=== PATIENT | male | born 1945 | race Caucasian/White ===

== ENCOUNTER → 2016-09-27 | Outpatient (CLI) | payer MEDICARE, OTHER ==
--- NOTE | 2016-09-27 17:12 | CR ---
EXAMINATION: Lumbar spine HISTORY: Low back pain COMPARISON: Radiographs dated 05/04/2016 TECHNIQUE: AP and lateral views FINDINGS: The lumbar spinal alignment appears grossly normal. The vertebral body heights appear main tained. Mild disc space narrowing is noted at L2-L3. Moderate marginal osteophytes are present. The SI joints are symmetric. Bone mineralization is normal. Vascular calcifications are present. IMPRESSION: Degenerative changes without acute findings.
== END | disposition home or self-care (01) ==
LOC: MW.CHFP 15:22
PROVIDERS: ATTEND Nurse Practitioner Family
DX: M54.5 Low back pain (principal); M47.896 Other spondylosis, lumbar region; M54.30 Sciatica, unspecified side
CPT/HCPCS: 72100; G0463

== ENCOUNTER → 2016-10-02 | Outpatient (CLI) | payer MEDICARE, OTHER | LOC: MW.CHRC 08:00 | CPT/HCPCS: G0463 ==

== ENCOUNTER → 2016-10-04 | Outpatient (CLI) | payer MEDICARE, OTHER | LOC: MW.CHORTHO 08:00 | DX: M17.11 Unilateral primary osteoarthritis, right knee (principal) | CPT/HCPCS: 20610; G0463; J1040 ==

== ENCOUNTER 2016-10-07 09:02 | Emergency (ER) | payer MEDICARE, OTHER ==
--- NOTE | 2016-10-07 09:40 | EDM.PDOC ---
ED HPI GENERAL MEDICAL PROBLEM - General Chief Complaint: Back Pain or Injury Stated Complaint: LEG PAIN Time Seen by Provider: 10/07/16 09:37 Source of Information: Reports: Patient - History of Present Illness INITIAL COMMENTS - FREE TEXT/NARRATIVE: HISTORY AND PHYSICAL: History of present illness: [ patient presents with low back pain radiating to the right knee in the sciatic distribution, he is been having difficulty sleeping for 2-3 weeks now he rates pain 7/10 today, no fever nausea vomiting chills sweats no chest pain shortness breath headache dizziness or palpitation no bowel or urine symptoms no footdrop or saddle anesthesia pain has been present off and on over the last 3-4 years more mild symptoms in the past Review of systems: As per history of present illness and below otherwise all systems reviewed and negative. Past medical history: As per history of present illness and as reviewed below otherwise noncontributory. Surgical history: As per history of present illness and as reviewed below otherwise noncontributory. Social history: No reported history of drug or alcohol abuse. Family history: As per history of present illness and as reviewed below otherwise noncontributory. Physical exam: HEENT: Atraumatic, normocephalic, pupils reactive, negative for conjunctival pallor or scleral icterus, mucous membranes moist, throat clear, neck supple, nontender, trachea midline. Lungs: Clear to auscultation, breath sounds equal bilaterally, chest nontender. Heart: S1S2, regular, negative for clicks, rubs, or JVD. Abdomen: Soft, nondistended, nontender. Negative for masses or hepatosplenomegaly. Negative for costovertebral tenderness. Pelvis: Stable nontender. Genitourinary: Deferred. Rectal: Deferred. Extremities: Atraumatic, negative for cords or calf pain. Neurovascular unremarkable. No footdrop or saddle anesthesia Neuro: Awake, alert, oriented. Cranial nerves II through XII unremarkable. Cerebellum unremarkable. Motor and sensory unremarkable throughout. Exam nonfocal. Diagnostics: [] Lumbar spine on electronic file Therapeutics: [] Patient her currently on Flexeril, hydrocodone, he is been on prednisone, and as failed tramadol We can add Lyrica 50 mg by mouth daily #14 no refill Followup with primary care, consideration of MRI and/or epidural steroid injection Impression: [] Right sciatic distribution pain Definitive disposition and diagnosis as appropriate pending reevaluation and review of above. Right Lower Back Pain Score (Numeric/FACES): 8 - Related Data Allergies Allergy/AdvReac Type Severity Reaction Status Date / Time No Known Allergies Allergy Verified 10/07/16 09:10 Home Meds: Home Meds Aspirin [Children's Aspirin] 81 mg PO DAILY 05/22/14 [History] Clopidogrel [Plavix] 75 mg PO DAILY 05/22/14 [History] Ezetimibe [Zetia] 10 mg PO DAILY 05/22/14 [History] Isosorbide Mononitrate [Imdur] 30 mg PO DAILY 05/22/14 [History] Metoprolol Succinate 50 mg PO BID 05/22/14 [History] Ramipril [Altace] 1 tab PO DAILY 05/22/14 [History] Ranolazine [Ranexa] 1 gm PO BID 05/22/14 [History] atorvaSTATin [Lipitor] 1 tab PO DAILY 05/22/14 [History] Cyclobenzaprine [Flexeril] 10 mg PO BEDTIME PRN 10/07/16 [History] Hydrocodone/Acetaminophen [Hydrocodon-Acetaminophen 5-325] 1 each PO BID PRN 11/20 [History] Past Medical History HEENT History: Reports: Impaired vision Cardiovascular History: Reports: CAD, High cholesterol, Hypertension, [place], Stents Other Cardiovascular History: [place] X 4. Stenting X 6. Bypass X 2 Respiratory History: Reports: None Gastrointestinal History: Reports: None Genitourinary History: Reports: None Musculoskeletal History: Reports: Other (see below) (chronic back pain) Neurological History: Reports: None Psychiatric History: Reports: None Endocrine/Metabolic History: Reports: None Dermatologic History: Reports: None - Infectious Disease History Infectious Disease History: Reports: None - Past Surgical History Cardiovascular Surgical History: Reports: Carotid stents, Coronary artery bypass Male Surgical History: Reports: None Musculoskeletal Surgical History: Reports: Other (see below) Other Musculoskeletal Surgeries/Procedures:: bilateral shoulder surgery Social & Family History - Family History Family Medical History: Unobtainable HEENT: Reports: None Cardiac: Reports: None Respiratory: Reports: None - Tobacco Use Smoking Status *Q: Never Smoker Second Hand Smoke Exposure: No - Caffeine Use Caffeine Use Comment: 1-2 cups a day - Alcohol Use Days Per Week of Alcohol Use: 0 Number of Drinks Per Day: 1 Total Drinks Per Week: 0 - Recreational Drug Use Recreational Drug Use: No - Living Situation & Occupation Living situation: Reports: ED ROS GENERAL - Review of Systems Review Of Systems: ROS reveals no pertinent complaints other than HPI. ED EXAM, GENERAL - Physical Exam Exam: See Below Course - Vital Signs Last Recorded V/S: Last Vital Signs Temp 35.9 C 10/07/16 09:13 Pulse 57 L 10/07/16 09:13 Resp 16 10/07/16 09:13 BP 131/58 L 10/07/16 09:13 Pulse Ox 94 L 10/07/16 09:13 Departure - Departure Time of Disposition: 09:39 Disposition: Home, Self-Care 01 Condition: good Clinical Impression: Sciatica Forms: ED Department Discharge Additional Instructions: Medication as prescribed Continue current medications Followup with primary care may consider MRI and/or epidural steroid injection The following information is given to patients seen in the emergency department who are being discharged to home. This information is to outline your options for follow-up care. We provide all patients seen in our emergency department with a follow-up referral. The need for follow-up, as well as the timing and circumstances, are variable depending upon the specifics of your emergency department visit. If you don't have a primary care physician on staff, we will provide you with a referral. We always advise you to contact your personal physician following an emergency department visit to inform them of the circumstance of the visit and for follow-up with them and/or the need for any referrals to a consulting specialist. The emergency department will also refer you to a specialist when appropriate. This referral assures that you have the opportunity for follow-up care with a specialist. All of these measure are taken in an effort to provide you with optimal care, which includes your follow-up. Under all circumstances we always encourage you to contact your private physician who remains a resource for coordinating your care. When calling for follow-up care, please make the office aware that this follow-up is from your recent emergency room visit. If for any reason you are refused follow-up, please contact the [facility] emergency department at and asked to speak to the emergency department charge nurse.
== END 2016-10-07 09:46 | disposition home or self-care (01) ==
LOC: MW.ED 09:02
CPT/HCPCS: 99283

== ENCOUNTER → 2016-10-10 | Outpatient (CLI) | payer MEDICARE, OTHER | LOC: MW.CHFP 08:00 | PROVIDERS: ATTEND Nurse Practitioner Family | DX: M54.5 Low back pain (principal) | CPT/HCPCS: G0463 ==

== ENCOUNTER → 2016-10-11 | Outpatient (CLI) | payer MEDICARE, OTHER ==
--- NOTE | 2016-10-11 15:54 | MR ---
EXAM DATE: 10/11/16 PATIENT'S AGE: 71 Patient: LENIN MAGALLANES Facility: [place], [place] Site . Site : 1945 Study: MRI Spine Lumbar [id number]/8/2017 8:57:01 AM Ordering Physician: Armand Muse Final Report: Indication: 71-year-old male. Severe low back pain with right leg radiation to the knee. Technique: T1-T2 and STIR sagittal images with multilevel T1 and T2 axial acquisitions. Findings: Lumbar alignment is normal. Conus is normal. T11-12 and T12-L1: Minor spondylosis/annular bulge. No significant central or foraminal narrowing. L1-2: Disc bulge, spurring and grade 1 retrolisthesis. No significant central or foraminal narrowing. L2-3: Large right central/foraminal disc extrusion markedly impinges right L3 and L2. Moderate central stenosis by extrusion. Mild left foraminal narrowing. Disc space narrowing, disc bulge, spurring and grade 1 retrolisthesis. L3-4: Disc bulge, spurring and grade 1 retrolisthesis. Mild right foraminal narrowing. Right far lateral disc osteophyte complex mildly impinges L3. L4-5: Advanced bilateral facet arthrosis. Grade 1 anterolisthesis. Disc bulge and spurring. Mild bilateral foraminal narrowing. Moderate right and mild left subarticular recess stenosis. L5-S1: Focal right central protrusion mildly impinges right S1. Foramina adequately patent. Marked bilateral facet arthrosis. Visualized portions of the sacrum are normal. Impression: 1. Large right central/foraminal disc extrusion at L2-3 markedly impinges right L2 and L3. Extrusion contributes to moderate central stenosis. 2. Right central disc protrusion at L5-S1 and mildly impinges right S1. 3. Right far lateral marginal disc osteophyte complex at L3-4 mildly impinges right L3. 4. Moderate right L4-5 subarticular recess stenosis. Correlation for possible right L5 symptoms is suggested. 5. Spondylosis of other segments detailed above without significant central or foraminal and Dictated by Nicko Ludwig MD @ Oct 11 2016 9:07AM (Electronic Signature) Report Signed by Proxy and Original Signed Document filed in the Medical Record. NANCYD
== END ==
LOC: MW.MRI 07:16
PROVIDERS: ATTEND Nurse Practitioner Family
DX: M25.78 Osteophyte, vertebrae (principal); M47.9 Spondylosis, unspecified; M54.5 Low back pain
CPT/HCPCS: 72148; 72148-26

== ENCOUNTER 2016-10-14 23:08 | Emergency (ER) | payer MEDICARE, OTHER ==
--- NOTE | 2016-10-14 23:20 | EDM.PDOC ---
ED HPI GENERAL MEDICAL PROBLEM - General Stated Complaint: LEG FILLING WITH FLUID Time Seen by Provider: 10/14/16 23:15 - History of Present Illness INITIAL COMMENTS - FREE TEXT/NARRATIVE: HISTORY AND PHYSICAL: History of present illness: Patient is a 71-year-old white male history of sciatica judgments are bilateral peripheral edema this is his Lorex remedies right slightly greater than left he thinks he's noticed this over the last week or 2 seems to have more discomfort or tightness in the right leg than left. No numbness no weakness no incontinence or retention bladder he denies history of kidney problems denies history of heart failure. Review of systems: As per history of present illness and below otherwise all systems reviewed and negative. Past medical history: As per history of present illness and as reviewed below otherwise noncontributory. Surgical history: As per history of present illness and as reviewed below otherwise noncontributory. Social history: No reported history of drug or alcohol abuse. Family history: As per history of present illness and as reviewed below otherwise noncontributory. Physical exam: HEENT: Atraumatic, normocephalic, pupils reactive, negative for conjunctival pallor or scleral icterus, mucous membranes moist, throat clear, neck supple, nontender, trachea midline. Lungs: Clear to auscultation, breath sounds equal bilaterally, chest nontender. Heart: S1S2, regular, negative for clicks, rubs, or JVD. Abdomen: Soft, nondistended, nontender. Negative for masses or hepatosplenomegaly. Negative for costovertebral tenderness. Pelvis: Stable nontender. Genitourinary: Deferred. Rectal: Deferred. Extremities: Atraumatic, negative for cords or calf pain. Neurovascular unremarkable. Patient is noted to have 1-2+ edema in his inferior extremities right slightly greater than left Neuro: Awake, alert, oriented. Cranial nerves II through XII unremarkable. Cerebellum unremarkable. Motor and sensory unremarkable throughout. Exam nonfocal. Diagnostics: CBC CMP BNP UA chest x-ray EKG venous Doppler inferior extremities Therapeutics: none Impression: #1 peripheral edema Definitive disposition and diagnosis as appropriate pending reevaluation and review of above. - Related Data Allergies Allergy/AdvReac Type Severity Reaction Status Date / Time No Known Allergies Allergy Verified 10/14/16 23:18 Home Meds: Home Meds Aspirin [Children's Aspirin] 81 mg PO DAILY 05/22/14 [History] Clopidogrel [Plavix] 75 mg PO DAILY 05/22/14 [History] Ezetimibe [Zetia] 10 mg PO DAILY 05/22/14 [History] Isosorbide Mononitrate [Imdur] 30 mg PO DAILY 05/22/14 [History] Metoprolol Succinate 50 mg PO BID 05/22/14 [History] Ramipril [Altace] 1 tab PO DAILY 05/22/14 [History] Ranolazine [Ranexa] 1 gm PO BID 05/22/14 [History] atorvaSTATin [Lipitor] 1 tab PO DAILY 05/22/14 [History] Cyclobenzaprine [Flexeril] 10 mg PO BEDTIME PRN 10/07/16 [History] Hydrocodone/Acetaminophen [Hydrocodon-Acetaminophen 5-325] 1 each PO BID PRN 11/20 [History] Pregabalin [Lyrica] 1 cap PO BID 10/14/16 [History] Past Medical History HEENT History: Reports: Impaired vision Cardiovascular History: Reports: CAD, High cholesterol, Hypertension, [place], Stents Other Cardiovascular History: [place] X 4. Stenting X 6. Bypass X 2 Respiratory History: Reports: None Gastrointestinal History: Reports: None Genitourinary History: Reports: None Musculoskeletal History: Reports: Other (see below) (chronic back pain) Neurological History: Reports: None Psychiatric History: Reports: None Endocrine/Metabolic History: Reports: None Dermatologic History: Reports: None - Infectious Disease History Infectious Disease History: Reports: None - Past Surgical History Cardiovascular Surgical History: Reports: Carotid stents, Coronary artery bypass Male Surgical History: Reports: None Musculoskeletal Surgical History: Reports: Other (see below) Other Musculoskeletal Surgeries/Procedures:: bilateral shoulder surgery Social & Family History - Family History Family Medical History: Unobtainable HEENT: Reports: None Cardiac: Reports: None Respiratory: Reports: None - Tobacco Use Smoking Status *Q: Never Smoker Second Hand Smoke Exposure: No - Caffeine Use Caffeine Use Comment: 1-2 cups a day - Alcohol Use Days Per Week of Alcohol Use: 0 Number of Drinks Per Day: 1 Total Drinks Per Week: 0 - Recreational Drug Use Recreational Drug Use: No - Living Situation & Occupation Living situation: Reports: ED ROS GENERAL - Review of Systems Review Of Systems: ROS reveals no pertinent complaints other than HPI. ED EXAM, GENERAL - Physical Exam Exam: See Below (See dictation) Course - Vital Signs Last Recorded V/S: Last Vital Signs Temp 36.4 C 10/14/16 23:14 Pulse 67 10/14/16 23:14 Resp 16 10/14/16 23:14 BP 165/71 H 10/14/16 23:14 Pulse Ox 96 10/14/16 23:14 - Orders/Labs/Meds Orders: Active Orders 24 hr Category Date Time Status EKG 12 Lead [EKG Documentation Completion] [RC] STAT Care 10/14/16 23:15 Active Chest 1V Frontal [CR] Stat Exams 10/14/16 23:16 Ordered Venous Doppler Lwr Ext Bi [US] Stat Exams 10/14/16 23:16 Ordered Labs: Laboratory Tests 10/14/16 10/14/16 10/14/16 Range/Units 23:20 23:20 23:20 WBC 7.93 (4.0-11.0) K/uL RBC 4.39 L (4.50-5.90) M/uL Hgb 14.0 (13.0-17.0) g/dL Hct 40.2 (38.0-50.0) % MCV 91.6 (80.0-98.0) fL MCH 31.9 (27.0-32.0) pg MCHC 34.8 (31.0-37.0) g/dL RDW Std Deviation 42.9 (28.0-62.0) fl RDW Coeff of Ashlie 13 (11.0-15.0) % Plt Count 173 (150-400) K/uL MPV 9.00 (7.40-12.00) fL Neut % (Auto) 64.5 (48.0-80.0) % Lymph % (Auto) 23.7 (16.0-40.0) % Snyder % (Auto) 10.3 (0.0-15.0) % Eos % (Auto) 1.1 (0.0-7.0) % Baso % (Auto) 0.4 (0.0-1.5) % Neut # 5.1 (1.4-5.7) K/uL Lymph # 1.9 (0.6-2.4) K/uL Snyder # 0.8 (0.0-0.8) K/uL Eos # 0.1 (0.0-0.7) K/uL Baso # 0.0 (0.0-0.1) K/uL Nucleated RBC % 0.0 /100WBC Nucleated RBCs # 0 K/uL Sodium 136 (136-146) mmol/L Potassium 4.7 (3.5-5.1) mmol/L Chloride 105 (98-110) mmol/L Carbon Dioxide 21 (21-31) mmol/L BUN 22 (6.0-23.0) mg/dL Creatinine 1.1 (0.6-1.5) mg/dL Est Cr Clr Drug Dosing 53.97 mL/min Estimated GFR (MDRD) > 60.0 ml/min Glucose 123 H (60-110) mg/dL Calcium 9.0 (8.8-10.8) mg/dL Total Bilirubin 0.5 (0.1-1.5) mg/dL AST 18 (5-40) IU/L ALT 34 (8-54) IU/L Alkaline Phosphatase 63 (40-150) B-Natriuretic Peptide 39 (<100) PG/ML Total Protein 6.8 (6.0-8.0) g/dL Albumin 3.9 (3.4-4.8) g/dL Globulin 2.9 (2.0-3.5) g/dL Albumin/Globulin Ratio 1.3 (1.3-2.8) Departure - Departure Time of Disposition: 00:43 Disposition: Home, Self-Care 01 Condition: good Clinical Impression: Peripheral edema, Sciatica Additional Instructions: The following information is given to patients seen in the emergency department who are being discharged to home. This information is to outline your options for follow-up care. We provide all patients seen in our emergency department with a follow-up referral. The need for follow-up, as well as the timing and circumstances, are variable depending upon the specifics of your emergency department visit. If you don't have a primary care physician on staff, we will provide you with a referral. We always advise you to contact your personal physician following an emergency department visit to inform them of the circumstance of the visit and for follow-up with them and/or the need for any referrals to a consulting specialist. The emergency department will also refer you to a specialist when appropriate. This referral assures that you have the opportunity for followup care with a specialist. All of these measure are taken in an effort to provide you with optimal care, which includes your followup. Under all circumstances we always encourage you to contact your private physician who remains a resource for coordinating your care. When calling for followup care, please make the office aware that this follow-up is from your recent emergency room visit. If for any reason you are refused follow-up, please contact the [facility] emergency department at and asked to speak to the emergency department charge nurse. Leg elevation as discussed follow up primary medical doctor one to 2 days return as needed as discussed - My Orders Last 24 Hours: My Active Orders 10/14/16 23:15 EKG 12 Lead [EKG Documentation Completion] [RC] STAT 10/14/16 23:16 Chest 1V Frontal [CR] Stat Venous Doppler Lwr Ext Bi [US] Stat - Assessment/Plan Last 24 Hours: My Active Orders 10/14/16 23:15 EKG 12 Lead [EKG Documentation Completion] [RC] STAT 10/14/16 23:16 Chest 1V Frontal [CR] Stat Venous Doppler Lwr Ext Bi [US] Stat
[2016-10-15 00:08] LABS: CHLORIDE,CL 105 mmol/L (98-110); SODIUM,NA 136 mmol/L (136-146)
[2016-10-15 01:15] VITALS: BP 149/68
--- NOTE | 2016-10-16 21:08 | CR ---
EXAM DATE: 10/14/16 PATIENT'S AGE: 71 Patient: LENIN MAGALLANES Facility: [place], [place] Site . Site : 1945 Study: XRay Chest [id number]/11/2017 11:43:43 PM Ordering Physician: Doctor Domingo Final Report: INDICATION: cough, bilat leg swelling TECHNIQUE: Chest radiograph 1 view COMPARISON: 10/30/15 FINDINGS: Cardiovascular and mediastinum: The cardiac silhouette is normal in appearance and size. Mediastinum is within normal limits. Patient status post median sternotomy and coronary artery bypass grafting (CABG). Lungs and pleural space: Both lungs are unremarkable in appearance. No sign of pleural effusion. No pneumothorax is seen. Bones and soft tissues: No significant findings. IMPRESSION: 1. No acute cardiopulmonary disease seen. Dictated by: Luis Alberto Cottrell MD @ 10/14/2016 23:50:01 (Electronic Signature) Report Signed by Proxy and Original Signed Document filed in the Medical Record. MTDD
--- NOTE | 2016-10-16 21:09 | US ---
EXAM DATE: 10/14/16 PATIENT'S AGE: 71 Patient: LENIN MAGALLANES Facility: [place], [place] Site . Site : 1945 Study: US Extremity Bilateral [id number]/12/2017 12:42:59 AM Ordering Physician: Doctor Domingo Final Report: INDICATION: bilateral leg swelling TECHNIQUE: bilateral lower extremity venous duplex ultrasound was performed using merchant-scale ultrasound with and without compression and augmentation. Color Doppler and spectral Doppler exam of the lower extremity veins were obtained. COMPARISON: None FINDINGS: The bilateral common femoral, deep femoral, superficial femoral, popliteal, posterior tibial, and greater saphenous veins are fully compressible with normal Duplex waveforms and response to mechanical augmentation. No masses or fluid collections are present. No mass or adenopathy is seen. The distal femoral veins are difficult to visualize in both lower extremities. IMPRESSION: 1. No sonographic evidence of deep venous thrombosis seen. Dictated by: Luis Alberto Cottrell MD @ 10/15/2016 00:51:31 (Electronic Signature) Report Signed by Proxy and Original Signed Document filed in the Medical Record. [facility]
== END 2016-10-15 00:57 | disposition home or self-care (01) ==
LOC: MW.ED 23:08
DX: R60.0 Localized edema (principal); M54.30 Sciatica, unspecified side; I25.810 Atherosclerosis of coronary artery bypass graft(s) without angina pectoris; E78.00 Pure hypercholesterolemia, unspecified; I10 Essential (primary) hypertension; I25.2 Old myocardial infarction; Z79.82 Long term (current) use of aspirin; Z79.899 Other long term (current) drug therapy
CPT/HCPCS: 36415; 71010; 71010-26; 80053; 83880; 85025; 93005; 93970; 93970-26; 99283; 99284-25

== ENCOUNTER → 2016-10-23 | Outpatient (CLI) | payer MEDICARE, OTHER ==
--- NOTE | 2016-10-23 16:41 | US ---
ULTRASOUND EXAMINATION OF the right lower extremity WITH DOPPLER HISTORY: Soft tissue disorder FINDINGS: Examination of the right leg was performed from the groin to the calf region. The common femoral, fe moral, and posterior tibial veins appear patent. Augmentation is noted within the common femoral and femoral veins. There is a filling defect within the popliteal vein which is not compressible. IMPRESSION: Filling defect within the popliteal vein consistent with a venous thrombus.
== END ==
LOC: MW.CHFP 16:03
PROVIDERS: ATTEND Emergency Medicine
DX: M79.89 Other specified soft tissue disorders (principal); I25.10 Atherosclerotic heart disease of native coronary artery without angina pectoris; M54.41 Lumbago with sciatica, right side; Z99.89 Dependence on other enabling machines and devices; I82.401 Acute embolism and thrombosis of unspecified deep veins of right lower extremity; G47.33 Obstructive sleep apnea (adult) (pediatric)
CPT/HCPCS: 93971; 96372; 99214; J1650

== ENCOUNTER 2016-10-24 23:45 | Emergency (ER) | payer MEDICARE, OTHER ==
--- NOTE | 2016-10-25 00:57 | EDM.PDOC ---
ED HISTORY OF PRESENT ILLNESS - General Chief Complaint: Cardiovascular Problem Stated Complaint: BLOOD CLOT/BACK PAIN Time Seen by Provider: 10/24/16 23:53 Source of Information: Reports: Patient, Family History Limitations: Reports: No limitations - History of Present Illness INITIAL COMMENTS - FREE TEXT/NARRATIVE: HISTORY AND PHYSICAL: History of present illness: [Only 1-year-old male with a history of hypertension morbid obesity coronary artery disease with multiple stents, previously on Coumadin which was stopped recently because patient was anticipating a lumbar surgery in the next few days. Patient now presents emergent [facility] complaining of right lower extremity swelling she's had for several days. Seen yesterday in the Doppler of the r he was done which was diagnostic of a popliteal DVT. Lovenox shots were initiated by patient's primary care physician Dr. Crawford. Patient has been compliant with his Lovenox shots since they were initiated however today he is concerned because his right knee area is slightly more swollen than yesterday. He is getting his surgery because he has severe sciatica of the right buttock and right lower extremity with a herniated disc so his right leg always hurts. Denies chest pain or shortness of breath. No fevers chills sweats or shaking chills. Other than the leg pain and asymmetry with right leg the DVT is larger than the left. As per history of present illness and below otherwise all systems reviewed and negative. Past medical history: As per history of present illness and as reviewed below otherwise noncontributory. Surgical history: As per history of present illness and as reviewed below otherwise noncontributory. Social history: No reported history of drug or alcohol abuse. Family history: As per history of present illness and as reviewed below otherwise noncontributory. Physical exam: Morbidly obese male smiling in no acute distress HEENT: Atraumatic, normocephalic, pupils reactive, negative for conjunctival pallor or scleral icterus, mucous membranes moist, throat clear, neck supple, nontender, trachea midline. Lungs: Clear to auscultation, breath sounds equal bilaterally, chest nontender. Heart: S1S2, regular, negative for clicks, rubs, or JVD. Abdomen: Soft, nondistended, nontender. Negative for masses or hepatosplenomegaly. Negative for costovertebral tenderness. Pelvis: Stable nontender. Genitourinary: Deferred. Rectal: Deferred. Extremities: Atraumatic, left lower extremity negative for cords or calf pain. Right lower extremity with swelling and asymmetry. No erythema or warmth he does have soft tissue tenderness especially in the popliteal fossa. no crepitance or fluctuance Neurovascular unremarkable. Neurovascularly intact distally no clinical evidence of cauda equina syndrome Neuro: Awake, alert, oriented. Cranial nerves grossly unremarkable. Cerebellum unremarkable. Motor and sensory unremarkable throughout. Exam nonfocal. Diagnostics: [] Therapeutics: [] Impression: [] Plan: [] Definitive disposition and diagnosis as appropriate pending reevaluation and review of above. - Related Data Allergies/ADRs: Allergies Allergy/AdvReac Type Severity Reaction Status Date / Time No Known Allergies Allergy Verified 10/24/16 23:58 Home Meds: Home Meds Ezetimibe [Zetia] 10 mg PO DAILY 05/22/14 [History] Isosorbide Mononitrate [Imdur] 30 mg PO DAILY 05/22/14 [History] Metoprolol Succinate 50 mg PO BID 05/22/14 [History] Ramipril [Altace] 1 tab PO DAILY 05/22/14 [History] Ranolazine [Ranexa] 1 gm PO BID 05/22/14 [History] atorvaSTATin [Lipitor] 1 tab PO DAILY 05/22/14 [History] Cyclobenzaprine [Flexeril] 10 mg PO BEDTIME PRN 10/07/16 [History] Hydrocodone/Acetaminophen [Hydrocodon-Acetaminophen 5-325] 1 each PO BID PRN 11/20 [History] Pregabalin [Lyrica] 1 cap PO BID 10/14/16 [History] Past Medical History - Past Health History Medical/Surgical History: Denies Medical/Surgical History HEENT History: Reports: Impaired vision Cardiovascular History: Reports: CAD, High cholesterol, Hypertension, NE, Stents Other Cardiovascular History: NE X 4. Stenting X 7. Bypass X 2 Respiratory History: Reports: None Gastrointestinal History: Reports: None Genitourinary History: Reports: None Musculoskeletal History: Reports: Other (see below) (chronic back pain) Neurological History: Reports: None Psychiatric History: Reports: None Endocrine/Metabolic History: Reports: None Dermatologic History: Reports: None - Infectious Disease History Infectious Disease History: Reports: Chicken pox - Past Surgical History Cardiovascular Surgical History: Reports: Carotid stents, Coronary artery bypass Male Surgical History: Reports: None Musculoskeletal Surgical History: Reports: Other (see below) Other Musculoskeletal Surgeries/Procedures:: bilateral shoulder surgery Social & Family History - Family History Family Medical History: Noncontributory HEENT: Reports: None Cardiac: Reports: None Respiratory: Reports: None - Tobacco Use Smoking Status *Q: Never Smoker Second Hand Smoke Exposure: No - Caffeine Use Caffeine Use: Reports: Coffee Caffeine Use Comment: 1cup every other day - Alcohol Use Days Per Week of Alcohol Use: 0 Number of Drinks Per Day: 1 Total Drinks Per Week: 0 - Recreational Drug Use Recreational Drug Use: No - Living Situation & Occupation Living situation: Reports: ED ROS GENERAL - Review of Systems Review Of Systems: See Below (Per history of present illness) ED EXAM, GENERAL - Physical Exam Exam: See Below (Per history of present illness) Course - Vital Signs Text/Narrative:: Signs and symptoms consistent with lower shimmery findings typical for DVT of that leg which is a known diagnosis in the popliteal distribution. Patient is compliant with his anticoagulation with Lovenox. He has no clinical evidence of PE. vital signs are unremarkable and he looks well. No further workup or treatment indicated at this time. Patient aware to followup with Dr. Crawford in the morning and return immediately for new severe or worsening symptoms specifically chest pain or shortness of air and that these findings may clinically indicated a PE which he will seek emergent evaluation or down 911 Last Recorded V/S: Last Vital Signs Temp 36.4 C 10/24/16 23:52 Pulse 60 10/25/16 01:15 Resp 18 10/25/16 01:15 BP 121/72 10/25/16 01:15 Pulse Ox 95 10/25/16 01:15 - Orders/Labs/Meds Labs: Laboratory Tests 10/25/16 Range/Units 00:05 INR 1.06 (0.86-1.11) Departure - Departure Time of Disposition: 00:55 Disposition: Home, Self-Care 01 Condition: fair Clinical Impression: Deep vein thrombosis (DVT), Pain of right lower extremity Instructions: Deep Vein Thrombosis Referrals: PCP,None [Primary Care Provider] - Forms: ED Department Discharge Additional Instructions: As you know, You have a deep vein thrombosis in your right leg. Continue Lovenox as prescribed and follow up with Dr. Crawford in the morning. Return immediately for chest pain or shortness of breath.
[2016-10-25 01:40] VITALS: BP 121/72
== END 2016-10-25 01:20 | disposition home or self-care (01) ==
LOC: MW.ED 23:45
DX: I82.409 Acute embolism and thrombosis of unspecified deep veins of unspecified lower extremity (principal); M79.604 Pain in right leg; I25.2 Old myocardial infarction; I10 Essential (primary) hypertension; I25.10 Atherosclerotic heart disease of native coronary artery without angina pectoris; E78.00 Pure hypercholesterolemia, unspecified; Z79.899 Other long term (current) drug therapy; Z95.5 Presence of coronary angioplasty implant and graft; Z95.1 Presence of aortocoronary bypass graft; Z98.890 Other specified postprocedural states
CPT/HCPCS: 36415; 85610; 99284; 99284-25

== ENCOUNTER → 2016-11-01 | Outpatient (CLI) | payer MEDICARE, OTHER | LOC: MW.CHIM 08:00 | PROVIDERS: ATTEND Internal Medicine | DX: M51.26 Other intervertebral disc displacement, lumbar region (principal); I82.401 Acute embolism and thrombosis of unspecified deep veins of right lower extremity; I25.10 Atherosclerotic heart disease of native coronary artery without angina pectoris; I10 Essential (primary) hypertension | CPT/HCPCS: 99204 ==

== ENCOUNTER → 2016-11-03 | Outpatient (CLI) | payer MEDICARE, OTHER | LOC: MW.CHFP 07:44 | PROVIDERS: ATTEND Emergency Medicine | DX: I82.401 Acute embolism and thrombosis of unspecified deep veins of right lower extremity (principal) | CPT/HCPCS: 36415; 85610 ==

== ENCOUNTER → 2016-11-06 | Outpatient (CLI) | payer MEDICARE, OTHER | LOC: MW.CHFP 07:44 | PROVIDERS: ATTEND Emergency Medicine | DX: Z51.81 Encounter for therapeutic drug level monitoring (principal); I82.401 Acute embolism and thrombosis of unspecified deep veins of right lower extremity; Z79.01 Long term (current) use of anticoagulants | CPT/HCPCS: 36415; 85610 ==

== ENCOUNTER → 2016-11-12 | Outpatient (CLI) | payer MEDICARE, OTHER | LOC: MW.NPLAB 07:51 | PROVIDERS: ATTEND Emergency Medicine | DX: I82.401 Acute embolism and thrombosis of unspecified deep veins of right lower extremity (principal) | CPT/HCPCS: 36415; 85610 ==

== ENCOUNTER → 2016-11-14 | Outpatient (CLI) | payer MEDICARE, OTHER | END | disposition home or self-care (01) | LOC: MW.CHFP 08:01 | PROVIDERS: ATTEND Emergency Medicine | DX: I82.401 Acute embolism and thrombosis of unspecified deep veins of right lower extremity (principal) | CPT/HCPCS: 36415; 85610 ==

== ENCOUNTER → 2016-11-17 | Outpatient (CLI) | payer MEDICARE, OTHER | LOC: MW.CHFP 07:38 | PROVIDERS: ATTEND Emergency Medicine | DX: I82.401 Acute embolism and thrombosis of unspecified deep veins of right lower extremity (principal) | CPT/HCPCS: 36415; 85610 ==

== ENCOUNTER → 2016-11-30 | Outpatient (CLI) | payer MEDICARE, OTHER | LOC: MW.CHFP 08:00 | PROVIDERS: ATTEND Student in an Organized Health Care Education/Training Program | DX: Z51.81 Encounter for therapeutic drug level monitoring (principal); Z79.01 Long term (current) use of anticoagulants; I82.91 Chronic embolism and thrombosis of unspecified vein | CPT/HCPCS: 85610; 99211 ==

== ENCOUNTER → 2016-12-12 | Outpatient (CLI) | payer MEDICARE, OTHER | LOC: MW.CHFP 08:00 | PROVIDERS: ATTEND Student in an Organized Health Care Education/Training Program | DX: Z51.81 Encounter for therapeutic drug level monitoring (principal); Z79.01 Long term (current) use of anticoagulants; I82.409 Acute embolism and thrombosis of unspecified deep veins of unspecified lower extremity | CPT/HCPCS: 85610; 99211 ==

== ENCOUNTER → 2016-12-26 | Outpatient (CLI) | payer MEDICARE, OTHER | LOC: MW.CHFP 08:00 | PROVIDERS: ATTEND Student in an Organized Health Care Education/Training Program | DX: Z51.81 Encounter for therapeutic drug level monitoring (principal); Z79.01 Long term (current) use of anticoagulants; I82.409 Acute embolism and thrombosis of unspecified deep veins of unspecified lower extremity | CPT/HCPCS: 85610; 99211 ==

== ENCOUNTER 2017-07-18 08:02 | Day surgery (SDC) | payer MEDICARE, OTHER ==
[~2017-07-18 08:02] MED LIST: Bupivacaine 0.25% 10 ML SDV ONE; Bupivacaine 0.25%/EPINEPHrine 1:200,000 10 ML SDV INJECT ONE; Lactated Ringers 1,000 ML IV SCH; Lidocaine 2% 5 ML SDV ONE; Midazolam 1 MG/ML 2 ML SDV ONE; Propofol 200 MG/20 ML SDV ONE; ceFAZolin 2 GM in Premix Bag 1 BAG IV ONE; fentaNYL 100 MCG/2 ML SDV ONE
--- NOTE | 2017-07-18 09:13 | PCM.PREANE ---
Preanesthetic Assessment - Anesthesia/Transfusion/Family Hx Anesthesia History: Prior Anesthesia Without Reaction Family History of Anesthesia Reaction: No Transfusion History: No Prior Transfusion(s) Intubation History: Unknown - Review of Systems General: No Symptoms Pulmonary: No Symptoms Cardiovascular: No Symptoms Gastrointestinal: No Symptoms Neurological: No Symptoms Other: Reports: None - Physical Assessment O2 Sat by Pulse Oximetry: 96 Respiratory Rate: 18 Vital Signs: Last Vital Signs Temp 36.2 C 07/18/17 08:34 Pulse 54 L 07/18/17 08:34 Resp 18 07/18/17 08:34 BP 131/67 07/18/17 08:34 Pulse Ox 96 07/18/17 08:34 Height: 1.68 m Weight: 114.759 kg ASA Class: 3 Mental Status: Alert & Oriented x3 Airway Class: Mallampati = 2 Dentition: Reports: Normal Dentition Thyro-Mental Finger Breadths: 3 Mouth Opening Finger Breadths: 2 ROM/Head Extension: Limited/Partial Lungs: Clear to Auscultation, Normal Respiratory Effort Cardiovascular: Regular Rate, Regular Rhythm - Allergies Allergies/Adverse Reactions: Allergies Allergy/AdvReac Type Severity Reaction Status Date / Time No Known Allergies Allergy Verified 07/16/17 14:39 - Anesthesia Plan Pre-Op Medication Ordered: None Beta Cyn: Metoprolol Med Last Dose Date: 07/18/17 Med Last Dose Time: 07:00 - Acknowledgements Anesthesia Type Planned: MAC Pt an Appropriate Candidate for the Planned Anesthesia: Yes Alternatives and Risks of Anesthesia Discussed w Pt/Guardian: Yes Pt/Guardian Understands and Agrees with Anesthesia Plan: Yes PreAnesthesia Questionnaire - Past Health History Medical/Surgical History: Denies Medical/Surgical History HEENT History: Reports: Hard of Hearing Other HEENT History: wears glasses, has bilateral hearing aides Cardiovascular History: Reports: Blood Clots/VTE/DVT, CAD, High Cholesterol, Hypertension, IA Other Cardiovascular History: had DVT in right leg in October after stopping Plavix for 2 weeks Respiratory History: Reports: Sleep Apnea Other Respiratory History: uses CPAP Gastrointestinal History: Reports: None Genitourinary History: Reports: None Musculoskeletal History: Reports: Arthritis, Back Pain, Chronic Neurological History: Reports: Concussion, Other (See Below) Other Neuro History: hx of motion sickness Psychiatric History: Reports: None Endocrine/Metabolic History: Reports: Obesity/BMI 30+ Hematologic History: Reports: Anticoagulation Therapy Dermatologic History: Reports: None - Infectious Disease History Infectious Disease History: Reports: Chicken Pox - Past Surgical History Head Surgeries/Procedures: Reports: None Cardiovascular Surgical History: Reports: Coronary Artery Bypass, Coronary Artery Stent Other Cardiovascular Surgeries/Procedures: CABG x2 10 years ago and 7 stents ast one about 2 years ago GI Surgical History: Reports: Colonoscopy Musculoskeletal Surgical History: Reports: Shoulder Surgery Other Musculoskeletal Surgeries/Procedures:: bilateral RTCR x2, right CTR - SUBSTANCE USE Smoking Status *Q: Never Smoker Second Hand Smoke Exposure: No Days Per Week of Alcohol Use: 0 Number of Drinks Per Day: 1 Total Drinks Per Week: 0 Recreational Drug Use History: No - HOME MEDS Home Medications: Home Meds Ezetimibe [Zetia] 10 mg PO DAILY 05/22/14 [History] Isosorbide Mononitrate [Imdur] 30 mg PO DAILY 05/22/14 [History] Metoprolol Succinate 50 mg PO BID 05/22/14 [History] Ramipril [Altace] 10 mg PO DAILY 05/22/14 [History] Ranolazine [Ranexa] 1 gm PO BID 05/22/14 [History] atorvaSTATin [Lipitor] 40 mg PO BEDTIME 05/22/14 [History] Aspirin [Adult Low Dose Aspirin EC] 81 mg PO DAILY 07/16/17 [History] Clopidogrel Bisulfate [Plavix] 75 mg PO DAILY 07/16/17 [History] Gabapentin [Neurontin] 800 mg PO QID 07/16/17 [History] Nitroglycerin [Nitrostat] 0.4 mg SL ASDIRECTED PRN MDD 3 doses 07/16/17 [History ] - CURRENT (IN HOUSE) MEDS Current Meds: Current Medications Lactated Ringer's (Ringers, Lactated) 1,000 mls @ 125 mls/hr IV ASDIRECTED CLAUDE Last Admin: 07/18/17 08:35 Dose: 125 mls/hr Discontinued Medications Bupivacaine HCl (Sensorcaine-Mpf 0.25%) Confirm Administered Dose 10 ml .ROUTE .STK-MED ONE Stop: 07/18/17 07:24 Bupivacaine HCl (Sensorcaine-Mpf 0.25%) Confirm Administered Dose 10 ml .ROUTE .STK-MED ONE Stop: 07/18/17 07:29 Bupivacaine HCl/Epinephrine Bitart (Marcaine 0.25%/Epinephrine 1:200,000) 10 ml INJECT ONETIME ONE Stop: 07/18/17 08:01 Fentanyl (Sublimaze) Confirm Administered Dose 100 mcg .ROUTE .STK-MED ONE Stop: 07/18/17 07:43 Cefazolin Sodium/Dextrose 2 gm (/ Premix) 50 mls @ 100 mls/hr IV ONETIME ONE Stop: 07/18/17 08:29 Lidocaine (Xylocaine-Mpf 2%) Confirm Administered Dose 5 ml .ROUTE .STK-MED ONE Stop: 07/18/17 07:43 Midazolam HCl (Versed 1 Mg/Ml) Confirm Administered Dose 2 mg .ROUTE .STK-MED ONE Stop: 07/18/17 07:43 Propofol (Diprivan 20 Ml) Confirm Administered Dose 400 mg .ROUTE .STK-MED ONE Stop: 07/18/17 07:43
[2017-07-18] MEDS ORDERED: Bupivacaine 25%/EPINEPHrine/PF 30 ML ONE (09:17)
--- NOTE | 2017-07-18 10:34 | PCM48HPAN ---
Post Anesthesia Note - EVALUATION WITHIN 48HRS OF ANESTHETIC Vital Signs in Normal Range: Yes Patient Participated in Evaluation: Yes Respiratory Function Stable: Yes Airway Patent: Yes Cardiovascular Function Stable: Yes Hydration Status Stable: Yes Pain Control Satisfactory: Yes Nausea and Vomiting Control Satisfactory: Yes Mental Status Recovered: Yes - COMMENTS/OBSERVATIONS Free Text/Narrative:: no anesthesia problems. patient skipped recovery room phase of postoperative care
[2017-07-18 11:05] VITALS: BP 115/68
--- NOTE | 2017-07-18 20:08 | PCM.OPNOTE ---
- General Post-Op/Procedure Note Date of Surgery/Procedure: 07/18/17 Operative Procedure(s): left carpal tunnel release Pre Op Diagnosis: left carpal tunnel syndrome Post-Op Diagnosis: Same Anesthesia Technique: Local, MAC Primary Surgeon: Nora Cox Certified Marine Mechanic: Edwina Noel Complications: None Condition: Good
--- NOTE | 2017-07-26 20:27 | OR ---
SURGEON: NORA COX MD DATE OF PROCEDURE: 07/18/2017 PREOPERATIVE DIAGNOSIS: Left carpal tunnel syndrome. POSTOPERATIVE DIAGNOSIS: Left carpal tunnel syndrome. PROCEDURE PERFORMED: Left carpal tunnel release. PRIMARY SURGEON: Nora Cox MD. VEHICLE DELIVERY WORKER: JULIO Pickens. REASON VEHICLE DELIVERY WORKER WAS NECESSARY: For retraction and closure assistance. ANESTHESIA: Local MAC. INDICATIONS: Mr. Palacio is a 72-year-old gentleman with left carpal tunnel syndrome. This is very severe and causing him pain. Risks and benefits of release were discussed with him, and he is in agreement to proceed. Risks were including, but not limited to bleeding, infection, damage to underlying or overlying structures, possible need for future interventions, possible scarring. PROCEDURE IN DETAIL: After informed consent was obtained and placed on the chart, the patient was brought to the operating theater and laid in the supine position. After adequate local MAC anesthesia was obtained, the area was prepped and draped and a time-out was completed to confirm side and site. The arm was exsanguinated and the tourniquet was insufflated to 200 mmHg and a 15 blade was used to dissect through skin and subcutaneous tissues over the transverse carpal ligament. The ligament was breached, and dissection was carried distally and proximally using a Littler scissor. The wound was copiously irrigated and then appropriate release was appreciated. The wound was then closed using a 5-0 nylon stitch in a horizontal mattress fashion. Once adequately closed, the wound was dressed with Xeroform fluffs and a Kerlix gauze dressing and a 2-inch Harvey wrap. The patient tolerated the procedure well. All counts and needles were correct at the end of the case. FOLLOWUP INSTRUCTIONS: The patient will see us in clinic in 10 to 14 days or sooner if any problems, questions, or concerns. He was given a prescription for pain control. HEGGTHE / MODL /[id number]
== END 2017-07-18 10:50 | disposition home or self-care (01) ==
LOC: MW.SDS 08:02
PROVIDERS: ATTEND Plastic Surgery
DX: G56.02 Carpal tunnel syndrome, left upper limb (principal); I25.10 Atherosclerotic heart disease of native coronary artery without angina pectoris; M47.816 Spondylosis without myelopathy or radiculopathy, lumbar region; M21.379 Foot drop, unspecified foot; I10 Essential (primary) hypertension; E78.00 Pure hypercholesterolemia, unspecified; G47.33 Obstructive sleep apnea (adult) (pediatric); M17.0 Bilateral primary osteoarthritis of knee; M48.00 Spinal stenosis, site unspecified; M47.817 Spondylosis without myelopathy or radiculopathy, lumbosacral region; I25.2 Old myocardial infarction; E66.9 Obesity, unspecified; Z79.82 Long term (current) use of aspirin; Z95.5 Presence of coronary angioplasty implant and graft; Z79.02 Long term (current) use of antithrombotics/antiplatelets; Z79.899 Other long term (current) drug therapy; Z86.718 Personal history of other venous thrombosis and embolism; Z95.1 Presence of aortocoronary bypass graft; Z68.41 Body mass index [BMI] 40.0-44.9, adult
CPT/HCPCS: 64721; J2250; J7120; 01810; J2704; J3010

== ENCOUNTER 2020-05-05 11:39 | Emergency (ER) | payer MEDICARE, OTHER ==
--- NOTE | 2020-05-05 12:00 | EDM.PDOC ---
ED HPI GENERAL MEDICAL PROBLEM - General Chief Complaint: Respiratory Problem Stated Complaint: SOB Time Seen by Provider: 05/05/20 11:40 - History of Present Illness INITIAL COMMENTS - FREE TEXT/NARRATIVE: 74M PMHx CAD, HTN, DVT, no AC use on Plavix/asa presents for +COVID-19. Patient was diagnosed a few days ago. His was recently hospitalized for COVID-19 infection, and since she has been home for the last two days, he feels it is difficult to care for her. He notes that he was tested last wekeend and tested positive. He denies SOB or CP but does note whole body weakness/aches, headache, and nearly passing out in the shower. Body Pain Score (Numeric/FACES): 4 - Related Data Allergies Allergy/AdvReac Type Severity Reaction Status Date / Time No Known Allergies Allergy Verified 05/05/20 12:05 Home Meds: Home Meds Ezetimibe [Zetia] 10 mg PO DAILY 05/22/14 [History] Isosorbide Mononitrate [Imdur] 30 mg PO DAILY 05/22/14 [History] Metoprolol Succinate 50 mg PO BID 05/22/14 [History] Ranolazine [Ranexa] 1 gm PO BID 05/22/14 [History] atorvaSTATin [Lipitor] 40 mg PO BEDTIME 05/22/14 [History] ramipriL [Altace] 10 mg PO DAILY 05/22/14 [History] Aspirin [Adult Low Dose Aspirin EC] 81 mg PO DAILY 07/16/17 [History] Clopidogrel Bisulfate [Plavix] 75 mg PO DAILY 07/16/17 [History] Gabapentin [Neurontin] 800 mg PO QID 07/16/17 [History] Nitroglycerin [Nitrostat] 0.4 mg SL ASDIRECTED PRN MDD 3 doses 07/16/17 [History] Hydrocodone/Acetaminophen [[place] 5-325 Tablet] 1 tab PO Q4H PRN #30 tablet 07/18/17 [Rx] Past Medical History - Past Health History Medical/Surgical History: Denies Medical/Surgical History HEENT History: Reports: Hard of Hearing Other HEENT History: wears glasses, has bilateral hearing aides Cardiovascular History: Reports: Blood Clots/VTE/DVT, CAD, High Cholesterol, Hypertension, [place] Other Cardiovascular History: had DVT in right leg in October after stopping Plavix for 2 weeks Respiratory History: Reports: Sleep Apnea Other Respiratory History: uses CPAP Gastrointestinal History: Reports: None Genitourinary History: Reports: None Musculoskeletal History: Reports: Arthritis, Back Pain, Chronic Neurological History: Reports: Concussion, Other (See Below) Other Neuro History: hx of motion sickness Psychiatric History: Reports: None Endocrine/Metabolic History: Reports: Obesity/BMI 30+ Hematologic History: Reports: Anticoagulation Therapy Dermatologic History: Reports: None - Infectious Disease History Infectious Disease History: Reports: Chicken Pox - Past Surgical History Head Surgeries/Procedures: Reports: None Cardiovascular Surgical History: Reports: Coronary Artery Bypass, Coronary Artery Stent Other Cardiovascular Surgeries/Procedures: CABG x2 10 years ago and 7 stents ast one about 2 years ago GI Surgical History: Reports: Colonoscopy Musculoskeletal Surgical History: Reports: Shoulder Surgery Other Musculoskeletal Surgeries/Procedures:: bilateral RTCR x2, right CTR Social & Family History - Family History Family Medical History: Noncontributory HEENT: Reports: None Cardiac: Reports: None Respiratory: Reports: None - Caffeine Use Caffeine Use: Reports: Coffee Caffeine Use Comment: 1cup every other day - Living Situation & Occupation Living situation: Reports: ED ROS GENERAL - Review of Systems Review Of Systems: Comprehensive ROS is negative, except as noted in HPI. ED EXAM, GENERAL - Physical Exam Exam: See Below Exam Limited By: No Limitations General Appearance: Alert, WD/WN, No Apparent Distress Ears: Normal External Exam Nose: Normal Inspection Throat/Mouth: Normal Inspection, Normal Voice, No Airway Compromise Head: Atraumatic, Normocephalic Neck: Normal Inspection Respiratory/Chest: No Respiratory Distress Cardiovascular: Normal Peripheral Pulses, Regular Rate, Rhythm GI/Abdominal: Soft, Non-Tender Extremities: Normal Inspection Neurological: Alert, Oriented Psychiatric: Normal Affect, Normal Mood Skin Exam: Warm, Dry, Intact EKG INTERPRETATION EKG Date: 05/05/20 Time: 12:30 Rhythm: NSR Rate (Beats/Min): 54 [place]: Normal P-Wave: Present QRS: Normal ST-T: Normal QT: Normal ME/PQ Interval: 238 Course - Vital Signs Last Recorded V/S: Last Vital Signs Temp 99.2 F 05/05/20 12:26 Pulse 64 05/05/20 12:05 Resp 17 05/05/20 12:05 BP 107/64 05/05/20 12:05 Pulse Ox 96 05/05/20 12:05 - Orders/Labs/Meds Orders: Active Orders 24 hr Category Date Time Status Cardiac Monitoring [RC] . DIRECTED Care 05/05/20 12:07 Active EKG Documentation Completion [RC] STAT Care 05/05/20 12:07 Active Pulse Oximetry [RC] ASDIRECTED Care 05/05/20 12:07 Active B-TYPE NATRIURETIC PEPTIDE,BNP [CHEM] Stat Lab 05/05/20 12:49 Received Sodium Chloride 0.9% [Saline Flush] Med 05/05/20 12:07 Active 10 ml FLUSH ASDIRECTED PRN Sodium Chloride 0.9% [Saline Flush] Med 05/05/20 12:07 Active 2.5 ml FLUSH ASDIRECTED PRN Saline Lock Insert [OM.PC] Stat Oth 05/05/20 12:07 Ordered Medication Orders Sodium Chloride (Saline Flush) 10 ml FLUSH ASDIRECTED PRN PRN Reason: Keep Vein Open Last Admin: 05/05/20 12:26 Dose: 10 ml Documented by: [email or web address] Sodium Chloride (Saline Flush) 2.5 ml FLUSH ASDIRECTED PRN PRN Reason: Keep Vein Open Last Admin: 05/05/20 12:26 Dose: 2.5 ml Documented by: [email or web address] Labs: Laboratory Tests 05/05/20 05/05/20 05/05/20 Range/Units 12:49 12:49 12:49 WBC 4.28 (4.0-11.0) K/uL RBC 4.21 L (4.50-5.90) M/uL Hgb 13.2 (13.0-17.0) g/dL Hct 39.5 (38.0-50.0) % MCV 93.8 (80.0-98.0) fL MCH 31.4 (27.0-32.0) pg MCHC 33.4 (31.0-37.0) g/dL RDW Std Deviation 43.6 (28.0-62.0) fl RDW Coeff of Ashlie 13 (11.0-15.0) % Plt Count 170 (150-400) K/uL MPV 9.50 (7.40-12.00) fL Neut % (Auto) 66.1 (48.0-80.0) % Lymph % (Auto) 20.6 (16.0-40.0) % Dewey % (Auto) 13.1 (0.0-15.0) % Eos % (Auto) 0.0 (0.0-7.0) % Baso % (Auto) 0.2 (0.0-1.5) % Neut # (Auto) 2.8 (1.4-5.7) K/uL Lymph # (Auto) 0.9 (0.6-2.4) K/uL Dewey # (Auto) 0.6 (0.0-0.8) K/uL Eos # (Auto) 0.0 (0.0-0.7) K/uL Baso # (Auto) 0.0 (0.0-0.1) K/uL Nucleated RBC % 0.0 /100WBC Nucleated RBCs # 0 K/uL INR APTT (18.6-31.3) SEC D-Dimer, Quantitative 0.70 H (0.0-0.50) mg/L FEU Lactate (0.20-2.00) mmol/L Sodium 135 L (136-148) mmol/L Potassium 4.6 (3.5-5.1) mmol/L Chloride 99 (98-107) mmol/L Carbon Dioxide 24.8 (21.0-32.0) mmol/L BUN 17 (7.0-18.0) mg/dL Creatinine 1.2 (0.8-1.3) mg/dL Est Cr Clr Drug Dosing 47.26 mL/min Estimated GFR (MDRD) 58.9 ml/min Glucose 117 H (74-106) mg/dL Calcium 8.8 (8.5-10.1) mg/dL Magnesium 2.1 (1.8-2.4) mg/dL Total Bilirubin 0.5 (0.2-1.0) mg/dL AST 30 (15-37) IU/L ALT 43 (14-63) IU/L Alkaline Phosphatase 61 (46-116) U/L Troponin I < 0.050 (0.000-0.056) ng/mL C-Reactive Protein 0.60 (0.00-0.90) mg/dL Total Protein 7.6 (6.4-8.2) g/dL Albumin 4.0 (3.4-5.0) g/dL Globulin 3.6 (2.6-4.0) g/dL Albumin/Globulin Ratio 1.1 (0.9-1.6) 05/05/20 05/05/20 Range/Units 12:49 12:49 WBC (4.0-11.0) K/uL RBC (4.50-5.90) M/uL Hgb (13.0-17.0) g/dL Hct (38.0-50.0) % MCV (80.0-98.0) fL MCH (27.0-32.0) pg MCHC (31.0-37.0) g/dL RDW Std Deviation (28.0-62.0) fl RDW Coeff of Ashlie (11.0-15.0) % Plt Count (150-400) K/uL MPV (7.40-12.00) fL Neut % (Auto) (48.0-80.0) % Lymph % (Auto) (16.0-40.0) % Dewey % (Auto) (0.0-15.0) % Eos % (Auto) (0.0-7.0) % Baso % (Auto) (0.0-1.5) % Neut # (Auto) (1.4-5.7) K/uL Lymph # (Auto) (0.6-2.4) K/uL Dewey # (Auto) (0.0-0.8) K/uL Eos # (Auto) (0.0-0.7) K/uL Baso # (Auto) (0.0-0.1) K/uL Nucleated RBC % /100WBC Nucleated RBCs # K/uL INR 1.14 APTT 26.1 (18.6-31.3) SEC D-Dimer, Quantitative (0.0-0.50) mg/L FEU Lactate 1.6 (0.20-2.00) mmol/L Sodium (136-148) mmol/L Potassium (3.5-5.1) mmol/L Chloride (98-107) mmol/L Carbon Dioxide (21.0-32.0) mmol/L BUN (7.0-18.0) mg/dL Creatinine (0.8-1.3) mg/dL Est Cr Clr Drug Dosing mL/min Estimated GFR (MDRD) ml/min Glucose (74-106) mg/dL Calcium (8.5-10.1) mg/dL Magnesium (1.8-2.4) mg/dL Total Bilirubin (0.2-1.0) mg/dL AST (15-37) IU/L ALT (14-63) IU/L Alkaline Phosphatase (46-116) U/L Troponin I (0.000-0.056) ng/mL C-Reactive Protein (0.00-0.90) mg/dL Total Protein (6.4-8.2) g/dL Albumin (3.4-5.0) g/dL Globulin (2.6-4.0) g/dL Albumin/Globulin Ratio (0.9-1.6) Meds: Medications Generic Name Dose Route Start Last Admin Trade Name Freq PRN Reason Stop Dose Admin Sodium Chloride 10 ml 05/05/20 12:07 05/05/20 12:26 Saline Flush FLUSH 10 ml ASDIRECTED PRN Administration Keep Vein Open Sodium Chloride 2.5 ml 05/05/20 12:07 05/05/20 12:26 Saline Flush FLUSH 2.5 ml ASDIRECTED PRN Administration Keep Vein Open Discontinued Medications Generic Name Dose Route Start Last Admin Trade Name Freq PRN Reason Stop Dose Admin Acetaminophen 1,000 mg 05/05/20 12:07 05/05/20 12:26 Tylenol Extra Strength PO 05/05/20 12:08 1,000 mg ONETIME ONE Administration Sodium Chloride 1,000 mls @ 999 mls/hr 05/05/20 12:07 05/05/20 12:26 Normal Saline IV 05/05/20 13:07 Not Given .Bolus ONE Ketorolac Tromethamine 15 mg 05/05/20 12:07 05/05/20 12:27 Toradol IVPUSH 05/05/20 12:08 Not Given ONETIME ONE Ondansetron HCl 4 mg 05/05/20 12:07 05/05/20 12:27 Zofran IVPUSH 05/05/20 12:08 Not Given ONETIME ONE - Re-Assessments/Exams Free Text/Narrative Re-Assessment/Exam: 05/05/20 13:29 D dimer is negative using age-adjusted D-dimer algorithm. 05/05/20 13:49 Patient is with normal labs and normal CXR, normal VS. Will d/c with supportive care and instructions for return precautions. PMD f/u advised. Departure - Departure Time of Disposition: 13:49 Disposition: Home, Self-Care 01 Condition: Good Clinical Impression: COVID-19 - Discharge Information Instructions: COVID-19: How to Protect Yourself and Others - [facility], COVID-19 Frequently Asked Questions Referrals: PCP,None [Primary Care Provider] - Forms: ED Department Discharge Additional Instructions: The following information is given to patients seen in the emergency department who are being discharged to home. This information is to outline your options for follow-up care. We provide all patients seen in our emergency department with a follow-up referral. The need for follow-up, as well as the timing and circumstances, are variable depending upon the specifics of your emergency department visit. If you don't have a primary care physician on staff, we will provide you with a referral. We always advise you to contact your personal physician following an emergency department visit to inform them of the circumstance of the visit and for follow-up with them and/or the need for any referrals to a consulting specialist. The emergency department will also refer you to a specialist when appropriate. This referral assures that you have the opportunity for follow-up care with a specialist. All of these measure are taken in an effort to provide you with optimal care, which includes your follow-up. Under all circumstances we always encourage you to contact your private physician who remains a resource for coordinating your care. When calling for follow-up care, please make the office aware that this follow-up is from your recent emergency room visit. If for any reason you are refused follow-up, please contact the [facility] Emergency Department at and asked to speak to the emergency department charge nurse. Please follow up with your primary care physician. If you do not have a primary care physician, see below: [facility] [address] [place] [id number] [facility] [address] [place] [id number] Sepsis Event Note (ED) - Focused Exam Vital Signs: Vital Signs Temp Temp Pulse Resp BP Pulse Ox 05/05/20 12:26 99.2 F 05/05/20 12:05 99.2 F 64 17 107/64 96 - My Orders Last 24 Hours: My Active Orders 05/05/20 12:07 Cardiac Monitoring [RC] . DIRECTED EKG Documentation Completion [RC] STAT Pulse Oximetry [RC] ASDIRECTED Sodium Chloride 0.9% [Saline Flush] 10 ml FLUSH ASDIRECTED PRN Sodium Chloride 0.9% [Saline Flush] 2.5 ml FLUSH ASDIRECTED PRN Saline Lock Insert [OM.PC] Stat 05/05/20 12:49 B-TYPE NATRIURETIC PEPTIDE,BNP [CHEM] Stat - Assessment/Plan Last 24 Hours: My Active Orders 05/05/20 12:07 Cardiac Monitoring [RC] . DIRECTED EKG Documentation Completion [RC] STAT Pulse Oximetry [RC] ASDIRECTED Sodium Chloride 0.9% [Saline Flush] 10 ml FLUSH ASDIRECTED PRN Sodium Chloride 0.9% [Saline Flush] 2.5 ml FLUSH ASDIRECTED PRN Saline Lock Insert [OM.PC] Stat 05/05/20 12:49 B-TYPE NATRIURETIC PEPTIDE,BNP [CHEM] Stat
[2020-05-05] MEDS ORDERED: Sodium Chloride 0.9% 10 ML Syringe FLUSH PRN (12:07)
[2020-05-05] MEDS ORDERED: Sodium Chloride 0.9% 2.5 ML Syringe FLUSH PRN (12:07)
[2020-05-05] MEDS ORDERED: Sodium Chloride 0.9% 1,000 ML IV ONE (12:07)
[2020-05-05] MEDS ORDERED: Ketorolac 15 MG/ML SDV IVPUSH ONE (12:07)
[2020-05-05] MEDS ORDERED: Ondansetron 4 MG/2 ML SDV IVPUSH ONE (12:07)
[2020-05-05] MEDS ORDERED: Acetaminophen 500 MG Tab PO ONE (12:07)
[2020-05-05 12:09] VITALS: BP 107/64; PULSE 64
--- NOTE | 2020-05-05 13:01 | CR ---
INDICATION: COVID TECHNIQUE: Chest 1 view. COMPARISON: 10/04/2016 FINDINGS: Cardiovascular and mediastinum: Heart size and vasculature are normal in caliber and appearance. Mediastinum is within normal limits. Sternotomy wires noted. Lungs and pleural space: Lungs are clear. No sign of infiltrate or mass. No sign of pleural effusion. No pneumothorax. Bones and soft tissues: No significant findings. IMPRESSION: Unremarkable chest. Dictated by Wiliam Maza MD @ May 05 2020 12:59PM Signed by Dr. Wiliam Maza @ May 05 2020 12:59PM
[2020-05-05 13:36] LABS: BLOOD UREA NITROGEN,BUN 17 mg/dL (7.0-18.0); CARBON DIOXIDE,CO2 24.8 mmol/L (21.0-32.0); CHLORIDE,CL 99 mmol/L (98-107); GLUCOSE RANDOM 117 mg/dL (74-106); POTASSIUM,K 4.6 mmol/L (3.5-5.1); SODIUM,NA 135 mmol/L (136-148)
== END 2020-05-05 14:04 | disposition home or self-care (01) ==
LOC: MW.ED 11:39
DX: U07.1 COVID-19 (principal); I25.10 Atherosclerotic heart disease of native coronary artery without angina pectoris; E78.00 Pure hypercholesterolemia, unspecified; I10 Essential (primary) hypertension; I25.2 Old myocardial infarction; M19.90 Unspecified osteoarthritis, unspecified site; E66.9 Obesity, unspecified; Z68.37 Body mass index [BMI] 37.0-37.9, adult; Z79.82 Long term (current) use of aspirin; Z79.02 Long term (current) use of antithrombotics/antiplatelets; Z79.899 Other long term (current) drug therapy; Z86.718 Personal history of other venous thrombosis and embolism
CPT/HCPCS: 36415; 71045; 80053; 83605; 83735; 83880; 84484; 85025; 85379; 85610; 85730; 86140; 93005; 99285; A9270

== ENCOUNTER 2024-02-26 12:15 | Observation (INO) | payer MEDICARE, OTHER ==
[2024-02-26 13:15] LABS: CORONAVIRUS COVID-19 NAA POSITIVE (NEGATIVE); INFLUENZA A NAA NEGATIVE (NEGATIVE); INFLUENZA B NAA NEGATIVE (NEGATIVE); RESPIRATORY SYNCYTIAL VIR NAA NEGATIVE (NEGATIVE)
[2024-02-26 16:11] LABS: BASOPHILS ABSOLUTE AUTO 0.03 K/uL (0.00-0.20); BASOPHILS PERCENT AUTO 0.3 % (0.0-1.0); EOSINOPHILS ABSOLUTE AUTO 0.01 K/uL (0.00-0.45); EOSINOPHILS PERCENT AUTO 0.1 % (0.0-6.0); HEMATOCRIT 36.4 % (42.0-52.0); HEMOGLOBIN 12.5 g/dL (14.0-18.0); IMMATURE GRAN ABSOLUTE AUTO 0.02 K/uL (0.00-0.05); IMMATURE GRAN PERCENT AUTO 0.2 % (0.0-0.4); LYMPHOCYTES ABSOLUTE AUTO 1.46 K/uL (1.00-4.80); LYMPHOCYTES PERCENT AUTO 14.5 % (24.0-44.0); MEAN CORPUSCULAR HEMOGLOBIN 31.3 pg (28.0-32.0); MEAN CORPUSCULAR HGB CONC 34.3 g/dL (32.0-36.0); MONOCYTES ABSOLUTE AUTO 1.33 K/uL (0.00-0.80); MONOCYTES PERCENT AUTO 13.2 % (0.0-8.0); NEUTROPHILS ABSOLUTE AUTO 7.22 K/uL (1.80-7.70); NEUTROPHILS PERCENT AUTO 71.7 % (41.0-71.0); PLATELET COUNT,PLT 168 K/uL (150-400); WHITE BLOOD CELL COUNT,WBC 10.07 K/uL (3.9-11.3)
[2024-02-26 16:48] LABS: A/G RATIO 1.1 (0.9-1.6); ALBUMIN 3.6 g/dL (3.4-5.0); BILIRUBIN TOTAL 0.9 mg/dL (0.2-1.0); CARBON DIOXIDE,CO2 26.3 mmol/L (21.0-32.0); EST CRCL DRUG DOSING (CG) 53.17 mL/min; POTASSIUM,K 4.1 mmol/L (3.5-5.1)
[2024-02-26] MEDS: Iopamidol 755 MG/ML 500 ML Multipack Bottle IVPUSH STA (18:27)
[2024-02-26] MEDS: Sodium Chloride 0.9% 2.5 ML Syringe FLUSH PRN (20:06)
[2024-02-26] MEDS: Sodium Chloride 0.9% 10 ML Syringe FLUSH PRN (20:06)
[2024-02-26] MEDS: Acetaminophen 500 MG Tab PO STA (20:06)
[2024-02-27] MEDS: Nirmatrelvir/Ritonavir 300 MG/100 MG Dosepak PO SCH (00:14)
[2024-02-27] MEDS: Nirmatrelvir/Ritonavir 150 MG/100 MG Dose Pack (Renal Dose) PO SCH (00:30)
[2024-02-27] MEDS: Enoxaparin 40 MG/0.4 ML Syringe SUBCUT SCH (00:30)
[2024-02-27 05:51] LABS: BASOPHILS ABSOLUTE AUTO 0.03 K/uL (0.00-0.20); BASOPHILS PERCENT AUTO 0.4 % (0.0-1.0); HEMOGLOBIN 12.8 g/dL (14.0-18.0); IMMATURE GRAN ABSOLUTE AUTO 0.02 K/uL (0.00-0.05); IMMATURE GRAN PERCENT AUTO 0.2 % (0.0-0.4); MEAN CORPUSCULAR HEMOGLOBIN 31.6 pg (28.0-32.0); MEAN CORPUSCULAR HGB CONC 34.6 g/dL (32.0-36.0); MEAN CORPUSCULAR VOLUME 91.4 fL (83.0-99.0); MEAN PLATELET VOLUME 9.2 fL (9.4-12.4); MONOCYTES ABSOLUTE AUTO 1.09 K/uL (0.00-0.80); MONOCYTES PERCENT AUTO 13.6 % (0.0-8.0); NEUTROPHILS PERCENT AUTO 75.8 % (41.0-71.0); PLATELET COUNT,PLT 162 K/uL (150-400); RED BLOOD CELL COUNT 4.05 M/uL (4.52-5.90); WHITE BLOOD CELL COUNT,WBC 8.04 K/uL (3.9-11.3)
[2024-02-27 06:09] LABS: CALCIUM 8.9 mg/dL (8.5-10.1); CARBON DIOXIDE,CO2 26.1 mmol/L (21.0-32.0); CREATININE 0.9 mg/dL (0.8-1.3); EST CRCL DRUG DOSING (CG) 59.07 mL/min; POTASSIUM,K 3.7 mmol/L (3.5-5.1)
[2024-02-27] MEDS ORDERED: Clopidogrel 75 MG Tab PO SCH (09:00)
[2024-02-27] MEDS: Isosorbide Mononitrate 30 MG Tab.ER PO SCH (09:07)
[2024-02-27] MEDS: Metoprolol Tartrate 50 MG Tab PO SCH (09:10)
[2024-02-27] MEDS: Lisinopril 10 MG Tab PO SCH (09:10)
[2024-02-28 05:21] VITALS: BP 169/76; PULSE 76
== END 2024-02-27 18:30 | disposition home or self-care (01) ==
LOC: MW.ED 12:15 → MW.MS 19:08
PROVIDERS: ADMIT Internal Medicine; ATTEND Internal Medicine
DX: R55 Syncope and collapse (principal); U07.1 COVID-19; I25.10 Atherosclerotic heart disease of native coronary artery without angina pectoris; G47.30 Sleep apnea, unspecified; E11.9 Type 2 diabetes mellitus without complications; E66.9 Obesity, unspecified; I10 Essential (primary) hypertension; Z79.82 Long term (current) use of aspirin; Z79.899 Other long term (current) drug therapy; Z79.84 Long term (current) use of oral hypoglycemic drugs
CPT/HCPCS: 0241U; 36415; 71046; 71275; 80048; 80053; 82947; 84484; 85025; 85379; 87651; 93005; 93971; 96372; 99285; A9270; G0378; J1650; J3490; Q9967; 36410; 93010; 99221; 99238; 99284